=== PATIENT | female | born 1945 | race Caucasian/White ===

== ENCOUNTER → 2016-11-03 | Outpatient (CLI) | payer MEDICARE, BC ==
[~2016-11-03] MED LIST: ASPIR-TRIN325 M1 PO; CLOPIDOGREL PO; CYCLOBENZ5 MG PO; ESCITALOPRAM10 MG PO; LISINOPRIL20 MG PO; NEURONTIN300 MG/CAP; NORCO 325 MG-51 TA1 PO; OMEPRAZOLE40 MG PO; VERAPAMIL240 MG PO
== END ==
LOC: RAD 12:17
DX: R10.31 Right lower quadrant pain (principal); R39.9 Unspecified symptoms and signs involving the genitourinary system; N20.0 Calculus of kidney; Z98.84 Bariatric surgery status
CPT/HCPCS: Q9967

== ENCOUNTER 2017-02-23 18:37 | Emergency (ER) | payer MEDICARE, BC ==
[~2017-02-23] VITALS: Wt 97.7 kg
[2017-02-23] MEDS ORDERED: ESCITALOPRAM10 MG PO (18:44)
[2017-02-23] MEDS ORDERED: CLOPIDOGREL PO (18:44)
[2017-02-23] MEDS ORDERED: CYCLOBENZ5 MG PO ×2 (18:45→20:50)
[2017-02-23] MEDS ORDERED: VERAPAMIL240 MG PO (18:45)
[2017-02-23] MEDS ORDERED: OMEPRAZOLE40 MG PO (18:45)
[2017-02-23] MEDS ORDERED: NEURONTIN300 MG/CAP (18:46)
[2017-02-23] MEDS ORDERED: LISINOPRIL20 MG PO (18:47)
[2017-02-23] MEDS ORDERED: ASPIR-TRIN325 M1 PO (18:47)
[2017-02-23] MEDS ORDERED: NORCO 325 MG-51 TA1 PO (20:52)
[2017-02-23 21:11] VITALS: BP 130/70
== END 2017-02-23 21:11 | disposition home or self-care (01) ==
LOC: ED 18:37
DX: S16.1XXA Strain of muscle, fascia and tendon at neck level, initial encounter (principal); S39.012A Strain of muscle, fascia and tendon of lower back, initial encounter; S80.212A Abrasion, left knee, initial encounter; S80.211A Abrasion, right knee, initial encounter; W05.0XXA Fall from non-moving wheelchair, initial encounter; Y92.414 Local residential or business street as the place of occurrence of the external cause; I10 Essential (primary) hypertension; Z86.73 Personal history of transient ischemic attack (TIA), and cerebral infarction without residual deficits; Z79.02 Long term (current) use of antithrombotics/antiplatelets
CPT/HCPCS: J1885

== ENCOUNTER → 2018-06-13 | Outpatient (CLI) | payer MEDICARE, BC ==
[~2018-06-13] VITALS: Wt 97.7 kg
[~2018-06-13] MED LIST changes: +AMIODARONE200 MG PO; +AMLODIPINE BESYL5 MG PO; +ATORVASTATIN CA20 MG PO; +ELIQUIS5 MG PO; +LYRICA75 MG PO; +PANTOPRAZOLE SO40 MG PO; +TIZANIDINE HYDRO4 M1 PO
[2018-06-13 17:26] VITALS: BP 155/78
== END ==
LOC: RAD 15:25 → LAB 15:25
DX: S00.03XA Contusion of scalp, initial encounter (principal); R33.9 Retention of urine, unspecified; W19.XXXA Unspecified fall, initial encounter